=== PATIENT | female | born 1935 | race Caucasian/White ===

== ENCOUNTER 2016-12-31 06:39 | Inpatient (IN) | payer MEDICARE, BC ==
--- NOTE | ~2016-12-31 | CR72 ---
[facility] A Service of [facility] RADIOLOGY TEXT RESULTS PATIENT: JOHN DOMINGO LOCATION: [facility] [address] : [birth year] UNIT #: [id number] AGE: [address]: Noe Cyr MD SEX: F ORDER DR: [id number] [facility] [address] [place], [place] [address] [id number] MR#: [id number] Acc #: [id number] NAME: JOHN DOMINGO : 1935 SEX: F STUDY DATE/TIME: 12/31/2016 5:26 UNIT: [facility] ROOM: STUDY DESCRIPTION: CR Chest Single View Portable Attending Physician: Angela Martínez M.D. Ordering Physician: Kendall Younger M.D. Primary Care Physician: Jensen Guevara, [facility] MEDICAL IMAGING REPORT This report is preliminary unless electronic signature is present EXAM Portable chest INDICATION Shortness of air and chest pain for the past 1-2 days. PROCEDURE Frontal view chest COMPARISON 11/02/2015 FINDINGS Heart size is probably stable. There is new opacity in the left apex. No dense consolidation in the right lung. No pneumothorax. IMPRESSION New opacity in the left apex could represent infiltrate or apical pleural fluid. Dictated by... Jameson Jang M.D. THIS IS AN ELECTRONICALLY VERIFIED REPORT Jameson Jang M.D. at 12/31/2016 9:56 PM CESAR/kita TD: 12/31/2016 08:57 JOB #: [id number] MEDICAL IMAGING REPORT Page 1 of 1 COPY
--- NOTE | ~2016-12-31 | CR72 ---
[facility] A Service of [facility] RADIOLOGY TEXT RESULTS PATIENT: JOHN DOMINGO LOCATION: [facility] 302-01 : 36 UNIT #: [id number] AGE: [address]: Noe Cyr MD SEX: F ORDER DR: [id number] [facility] [address] [place], [place] [address] [id number] I MR#: [id number] Acc #: [id number] NAME: JOHN DOMINGO : 1935 SEX: F STUDY DATE/TIME: 01/02/2017 18:28 UNIT: [address] ROOM: [facility] STUDY DESCRIPTION: CR Chest Single View Portable Attending Physician: Noe Cyr M.D. Ordering Physician: Vincent Baron M.D. Primary Care Physician: Jensen Guevara, [facility] MEDICAL IMAGING REPORT This report is preliminary unless electronic signature is present EXAM Portable chest HISTORY Chest surgery, shortness of breath since 12/31/2016 FINDINGS an AP view is obtained. Cardiac size is difficult to assess but unchanged. The right lung is clear. There are extensive postsurgical changes in the left hemithorax with marked apical pleural thickening and diffuse infiltrate in the left lung. This is unchanged from previous studies. CONCLUSION Stable chest. No change from study of 12/31/2016. Dictated by... Les Box M.D. THIS IS AN ELECTRONICALLY VERIFIED REPORT Les Box M.D. at 01/03/2017 12:00 PM Shawna TD: 01/02/2017 22:38 JOB #: [id number] MEDICAL IMAGING REPORT Page 1 of 1 COPY
--- NOTE | ~2016-12-31 | OR ---
Unit #: [id number] #: [id number] Patient: JOHN DOMINGO [id number] [address] [place], [place] [address] [id number] I MR#: [id number] NAME: JOHN DOMINGO ROOM: 302 Date of Procedure: 01/04/2017 Admission Date: 12/31/2016 Surgeon: Noe Cyr M.D. : 1935 Attending Physician: Noe Cyr M.D. Primary Care Physician: Jensen Guevara, [facility] OPERATIVE REPORT PROCEDURE PERFORMED Fiberoptic bronchoscopy. 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 PREOPERATIVE DIAGNOSIS Lung cancer. POSTOPERATIVE DIAGNOSIS Submucosal tumor, left upper lobe and to the left lower lobe and up the distal left mainstem, about 1 to 2 cm from the left lower lobe. DESCRIPTION OF PROCEDURE Procedure was done under MAC on supplemental oxygen. O2 saturations remained greater than 88%. Fiberoptic bronchoscope was introduced through the oral cavity through the bite block. Vocal cords were visualized, moved normally to phonation and breathing. There were some petechial-type lesions around the vocal cords. The bronchoscope was passed through the vocal cords into the trachea. Trachea appeared normal. Main luis miguel was sharp. The bronchoscope was advanced down the right mainstem, the bronchus intermedius, right middle lobe, lower lobe, and upper lobe. All orifices were widely patent without endobronchial lesions. The bronchoscope was withdrawn to the main luis miguel, advanced down the left mainstem. There was a tumor advancing upwards in the distal left mainstem from the left lower lobe and left upper lobe. The left upper lobe was more severely involved. Brushes and washes were done of the area with moderate bleeding. The bronchoscope was removed with cessation of bleeding. The patient tolerated the procedure well and will be recovered in postop recovery room. Samples were sent for cytologic evaluation to determine cell type for determination of chemo. Dictated by... Mane Little/eduarda TD: 01/04/2017 21:53 JOB #: [id number] Unit #: [id number] #: [id number] Patient: TYLER DOMINGOQUIN BURGESS OPERATIVE REPORT Page 1 of 1 X Noe Cyr MD PROCEDURE OPERATIVE NOTE
--- NOTE | ~2016-12-31 | EKG ---
PATIENT: JOHN DOMINGO UNIT #: [id number] Ventricular Rate: 135 BPM Atrial Rate: 141 BPM QRS Duration: 78 ms Q-T Interval: 352 ms QTC Calculation(Bezet): 528 ms Calculated R [place]: 81 degrees Calculated T [place]: -123 degrees Diagnosis Line: Atrial fibrillation with rapid ventricular Diagnosis Line: response with premature ventricular or aberrantly Diagnosis Line: conducted complexes Diagnosis Line: Low voltage QRS Diagnosis Line: Nonspecific ST abnormality , probably digitalis Diagnosis Line: effect Diagnosis Line: Abnormal QRS-T angle, consider primary T wave Diagnosis Line: abnormality Diagnosis Line: Abnormal ECG Diagnosis Line: When compared with ECG of 31-DEC-2016 05:47, Diagnosis Line: Significant changes have occurred Diagnosis Line: Confirmed by JYOTI FRANKLIN MD ([id number]) on 01/02/2017 Diagnosis Line: 10:57:28 PM INTERPRETING MD: RIGOBERTO GARRISON
--- NOTE | ~2016-12-31 | CT16 ---
[facility] A Service of [facility] RADIOLOGY TEXT RESULTS PATIENT: JOHN DOMINGO LOCATION: [facility] [id number] : 36 UNIT #: [id number] AGE: [address]: Noe Cyr MD SEX: F ORDER DR: [id number] [facility] [address] [place], [place] [address] [id number] E MR#: [id number] Acc #: [id number] NAME: JOHN DOMINGO : 1935 SEX: F STUDY DATE/TIME: 12/31/2016 7:10 UNIT: [facility] ROOM: STUDY DESCRIPTION: CT Angio Chest for PE Attending Physician: Angela Martínez M.D. Ordering Physician: Kendall Younger M.D. Primary Care Physician: Jensen Guevara, [facility] MEDICAL IMAGING REPORT This report is preliminary unless electronic signature is present EXAM CT angiogram of the chest INDICATION Chest pain starting at 11 o'clock last night. Patient also has shortness of breath. She has history of lung cancer. TECHNIQUE Axial CT images were obtained from the thoracic inlet through the dome of the diaphragm following the administration of intravenous contrast material. Following this 3-D reformatted images were obtained. This CT exam was performed with one or more of the following radiation dose reduction techniques: automatic exposure control, adjustment of mA and/or kV according to patient size, and iterative reconstruction. FINDINGS No acute pulmonary thromboembolus is seen. Thoracic aorta is normal in caliber. There is no evidence of dissection. Patient does have atherosclerotic involvement of the thoracic aorta. There is a common origin of the brachiocephalic artery and left common carotid artery which is a normal anatomic variant. This patient has consolidation within the left lung favored to be related to prior radiation therapy. However, there are patchy irregularly marginated nodules within the right upper lobe and left lower lobe which are favored to represent additional malignant involvement. Their appearance is stable when compared to November 22, 2016, however there has been some progressive enlargement of an AP window node which now measures up to 2.0 x 1.2 cm, previously 1.4 x 1.1 cm. There is a pericardial effusion which I think is also increased slightly in size. There is an left epicardial node which I do not appear significantly changed measuring about 2.0 x 1.4 cm, previously 1.9 x 1.7 cm. The thyroid gland and trachea appear within normal limits. There is a small hiatal hernia. Images through the upper abdomen do not STS. [facility] A Service of [facility] RADIOLOGY TEXT RESULTS PATIENT: JOHN DOMINGO LOCATION: [facility] [id number] : 36 UNIT #: [id number] AGE: [address]: Noe Cyr MD SEX: F ORDER DR: demonstrate any acute abnormalities. Review of bony windows does not demonstrate any aggressive osseous abnormalities. IMPRESSION 1. No acute pulmonary thromboembolus seen. Thoracic aorta is normal in caliber and there is evidence of dissection. 2. Patient does have evidence of some progression of disease since November 22, 2016 as an AP window node has increased in size. When compared to the PET from August 2016, consolidation within the left upper lobe has increased. On that study it was markedly hypermetabolic. This still could reflect some postradiation change. I think the possibility that residual disease persists should certainly be considered. Irregularly marginated nodules within the left lower lobe and right upper lobe are stable in appearance when compared to November 22, 2016. These areas were also FDG avid on prior PET. I do not see any new nodules. 3. Enlarged left pericardial node is again seen. I think it is probably stable in size although a small pericardial effusion has increased. There is also a trace partially loculated left pleural effusion which may also be slightly larger. Please see the body of the report for any other additional incidental findings. Dictated by... Lisa Buchanan M.D. THIS IS AN ELECTRONICALLY VERIFIED REPORT Lisa Buchanan M.D. at 12/31/2016 4:33 PM GITA/kita TD: 12/31/2016 09:54 JOB #: [id number] MEDICAL IMAGING REPORT Page 1 of 1 COPY
--- NOTE | ~2016-12-31 | HP ---
Unit #: [id number] #: [id number] Patient: JOHN DOMINGO [id number] [address] [address] [id number] I MR#: [id number] NAME: JOHN DOMINGO ROOM: [address] Age: 81 Sex: F Admission Date: 12/31/2016 : 1935 Attending Physician: Noe Cyr M.D. Primary Care Physician: Alton Jain HISTORY AND PHYSICAL Ms. Domingo is an 81-year-old white female with a history of COPD, small cell lung cancer status post chemo and radiation, who presents with a three day history of nausea and vomiting. She also had some anterior chest pain which was short lasting. She apparently also felt more short of breath. She said she monitored O2 saturations and they were above 90%. When she came into the emergency room, she was noted to be wheezing. She was given neb treatments, Solu-Medrol. She was given normal saline bolus. Her cardiac enzymes are initially negative. Her EKG showed sinus bradycardia with a rate of 55, low voltage QRS. We were called to admit the patient. PAST MEDICAL HISTORY Significant for: 1. Small cell lung cancer, followed by Dr. Vasquez and Dr. Simpson. 2. COPD. 3. Hypercholesterolemia. 4. Hypothyroidism. 5. Some arthritis. 6. Depression/anxiety. ALLERGIES No known allergies. SURGICAL HISTORY Has had multiple surgeries, says she has had 17 to 21. 1. She has had a hysterectomy. 2. Breast reduction. 3. Tummy tuck. 4. Bladder repair. 5. Tumor removed from neck. 6. Right foot surgery. 7. Left ankle surgery. FAMILY HISTORY Negative for lung disease. SOCIAL HISTORY Reformed smoker x15 years. Accumulated a 40 pack-year history. No significant alcohol use. MEDICATIONS Home medications listed include: 1. Xanax. 2. Synthroid. Unit #: [id number] #: [id number] Patient: JOHN DOMINGO 3. Ocuvite. 4. Says she also takes Symbicort. 5. She no longer wears home oxygen. REVIEW OF SYSTEMS CONSTITUTIONAL: Had some chills. No documented fevers. HEENT: No rhinorrhea or nasal congestion. Was short of breath. CARDIAC: She did have chest pains. GI: She did have nausea, vomiting. Hard to keep any food down for three days. : No hematuria or dysuria. ENDOCRINE: No polyuria or polydipsia. HEMATOLOGIC: No easy bruising or bleeding. SKIN: No rash. NEURO: No unilateral weakness or numbness. PHYSICAL EXAMINATION VITAL SIGNS: Blood pressure is 99/46, pulse 56, respiratory rate 20, afebrile. HEENT: Normocephalic, atraumatic. Pupils equal, round, reactive. Sclerae nonicteric. Nasal passages patent. Posterior pharynx crowded. NECK: Supple. Trachea midline. No cervical or supraclavicular lymphadenopathy. LUNGS: Diminished breath sounds. Slightly prolonged expiratory phase. CARDIAC: Heart sounds distant. Regular rate and rhythm. Could not appreciate murmur, rub or gallop. ABDOMEN: Nontender. Bowel sounds present. No hepatosplenomegaly. EXTREMITIES: Without clubbing, cyanosis or edema. Diminished peripheral pulses. SKIN: Warm and dry. Affect calm. DIAGNOSTIC STUDIES IMAGING: Chest x-ray reviewed. Chest x-ray shows new opacity in the left apex. Chest CT scan shows no evidence of pulmonary embolus. There is evidence of disease progression since October 2016. Consolidation in the left upper lobe has increased. LABORATORY: Chemistries reviewed. Cardiac enzymes negative. White count 9200, hematocrit 38.1, platelet count normal. IMPRESSION 1. Nausea, vomiting, uncertain etiology: Possible gastroenteritis. 2. Apparent mild respiratory failure, apparently O2 sats dropped during the emergency room. 3. Chronic obstructive pulmonary disease exacerbation, currently improved. 4. Small cell lung cancer with apparent progression of disease. Will treat with inhaled bronchodilators, burst steroids, cover with antibiotics. Will have Dr. Vasquez see regarding progression of disease. Will rule out AK. Start on clear liquid diet, Protonix. Monitor progress. May have GI see depending on followup. Dictated by Unit #: [id number] #: [id number] Patient: JOHN DOMINGO Mane Little/ariana TD: 12/31/2016 12:53 JOB #: [id number] CC: Jerome Pate M.D. HISTORY AND PHYSICAL Page 1 of 1 X Noe Cyr MD HISTORY AND PHYSICAL
--- NOTE | ~2016-12-31 | CO ---
Unit #: [id number] #: [id number] Patient: JOHN DOMINGO [id number] [address] [place], [place] [address] [id number] I MR#: [id number] NAME: JOHN DOMINGO ROOM: [facility] Age: 81 Sex: F Admission Date: 12/31/2016 : 1935 Attending Physician: Noe Cyr M.D. Primary Care Physician: Jensen Guevara, [facility] CONSULTATION REPORT REASON FOR CONSULTATION Atrial fibrillation with rapid ventricular response. HISTORY OF PRESENT ILLNESS This is an 81-year-old white female, who presented to the emergency room with a complaint of shortness of breath and vomiting. She says on Saturday morning she began to have vomiting every time she ate anything that went on all day long. Later that evening, she felt short of breath. She thought her breathing was okay because her oxygen saturation was 93%, which she took at home. She initially felt that her dyspnea was because of anxiety. She had a cough that was not very frequent and nonproductive. On Saturday, she states her dyspnea worsened. She had some discomfort in her chest that she felt was like pleurisy. She came to the emergency room for evaluation, where she was noted to be wheezing. She was treated with Mini-Neb treatments and IV steroids. She has a history of COPD and has not been on oxygen since March. She has faj-kkeru-bnzz lung cancer and has undergone multiple radiation and chemotherapy treatments. Her last chemotherapy treatment was a month and a half ago. She has a remote history of nicotine abuse, but she quit 20 years ago. She also said that she has chest heaviness after she walks on the treadmill for only 45 minutes. She has had no prior cardiac history or testing. She denies a history of hypertension, but has had high cholesterol in the past, but has been taken off medication. She has a history of rheumatic fever as a child. The patient was scheduled for a bronchoscopy because there was evidence of progression of her rza-epiyu-aoff lung cancer. Prior to the procedure, the patient was found to be in atrial fibrillation with rapid ventricular response with heart rate was up to 130 to 140 beats per minute. EKG confirmed atrial fibrillation. She was unaware of palpitations. PAST MEDICAL HISTORY 1. Hypotension. 2. Hyperlipidemia. 3. Rheumatic fever as a child. 4. Ibi-cgqff-nefz lung cancer, status post chemo and radiation therapy. 5. COPD. 6. Former smoker. 7. Questionable solitary kidney. PAST SURGICAL HISTORY 1. Tummy tuck. 2. Hernia repair. Unit #: [id number] #: [id number] Patient: JOHN DOMINGO 3. Cataract extraction. 4. Septoplasty. 5. Right neck benign tumor removal. 6. Bilateral breast reduction. 7. Right shoulder surgery. 8. Hysterectomy. 9. Bladder repair x2. 10. Bilateral knee replacements. 11. Toe spur removal. 12. Left leg surgery for repair of fracture. SOCIAL HISTORY The patient lives at home alone. She quit smoking 20 years ago, but previously smoked two packs of cigarettes a day. She denies illicit drug and alcohol use. FAMILY HISTORY Sister at age 64 and had a rheumatic fever as a child. ALLERGIES No known drug allergies. HOME MEDICATIONS Xanax 0.25 mg q.6 hours, levothyroxine 25 mcg daily, and Ocuvite one tablet daily. REVIEW OF SYSTEMS CONSTITUTIONAL: Negative for fever or chills. Reports no weight gain or weight loss. HEENT: No headache, hearing or vision changes, or difficulty with swallowing. No dizziness. CARDIOVASCULAR: Has chest heaviness as described in the HPI. Unaware of palpitations. No paroxysmal nocturnal dyspnea or orthopnea. Denies syncope or near syncope. RESPIRATORY: Positive for dyspnea and nonproductive cough. No hemoptysis. GASTROINTESTINAL: No abdominal pain, but reports nausea and vomiting. No constipation. No diarrhea. EXTREMITIES: Negative for lower extremity edema. PHYSICAL EXAMINATION VITAL SIGNS: Blood pressure 105/52, heart rate 87, and temperature 97.7. GENERAL: This is a pleasant 81-year-old mildly obese white female, who is in no acute distress. NEUROLOGIC: She is awake, alert, and oriented. There are no focal weaknesses. NECK: Trachea is midline. No thyromegaly or lymphadenopathy. No jugular venous distention. HEART: S1 and S2. Heart sounds are normal. No murmurs. No rubs or clicks. Irregularly irregular rhythm. LUNGS: Diminished breath sounds in both lungs. No rhonchi or wheezing. ABDOMEN: Soft and nontender. Bowel sounds are present. No hepatomegaly. EXTREMITIES: Without leg edema. SKIN: Warm and dry. DIAGNOSTIC STUDIES LABORATORY RESULTS: From 12/31/2016; glucose 93, BUN 19, creatinine 1.0, sodium 136, and potassium 3.8. BNP 41. Troponin less than 0.05. White Unit #: [id number] #: [id number] Patient: JOHN DOMINGO count 92, hemoglobin 12.6, hematocrit 38.8, and platelet count is 418. IMAGING STUDIES: CT angio of the chest on admission shows no evidence of pulmonary embolism. There is evidence of some progression of the disease since 10/2016. A large left pericardial node is seen. CARDIOVASCULAR STUDIES: EKG shows atrial fibrillation with rapid ventricular response with a rate of 135 beats per minute. There is nonspecific ST-wave abnormality. Low-voltage QRS. IMPRESSION 1. Dyspnea questionably secondary to progression of her lung cancer. 2. Chronic obstructive pulmonary disease exacerbation. 3. Atrial fibrillation with rapid ventricular response. 4. Exertional angina. PLAN 1. Because of atrial fibrillation with rapid ventricular response, we will anticoagulate the patient with Lovenox. 2. Slow the heart rate with IV Cardizem drip. 3. Because of exertional angina, we will evaluate coronaries with a cardiac catheterization. Risks and benefits have been discussed with the patient and she is agreeable. 4. Lipid profile and TSH will be obtained. 5. We will follow the patient with you. Thank you for allowing us to assist in this patient's care. Dictated by... Scotty Pavon A.P.R.N. for Mane Mckeon/eduarda TD: 01/02/2017 20:45 JOB #: [id number] CONSULTATION REPORT Page 1 of 1 X Scotty Pavon APRN X CONSULTATION REPORT
--- NOTE | ~2016-12-31 | DS ---
Unit #: [id number] #: [id number] Patient: JOHN DOMINGO [id number] [address] [place], [place] [address] [id number] I MR#: [id number] NAME: JOHN DOMINGO ROOM: [facility] Age: 81 Sex: F Admission Date: 12/31/2016 : 1935 Discharge Date: 01/04/2017 Attending Physician: Noe Cyr M.D. Primary Care Physician: Jensen Guevara, [facility] DISCHARGE SUMMARY DISCHARGE DIAGNOSES 1. Progressive lung cancer. 2. Nausea and vomiting, resolved. 3. Chronic obstructive pulmonary disease exacerbation. 4. Acute respiratory failure, resolved. 5. Atrial fibrillation with rapid ventricular response. DISCHARGE MEDICATIONS 1. Albuterol 2 puffs every 4 hours as needed. 2. Symbicort 160/4.5 at 2 puffs b.i.d. 3. Prednisone 40 mg for 2 days and decrease by 10 mg every 2 days until off. 4. Xanax 0.25 p.o. q.6 hours p.r.n. 5. Metoprolol 12.5 mg p.o. b.i.d. 6. Beta-carotene. 7. Ocuvite tablet 1 daily. 8. Synthroid 25 mcg daily. 9. Pradaxa per Dr. Baron. HOSPITAL COURSE An 81-year-old white female with a history of COPD and small cell lung cancer, status post chemoradiation, left upper lobe, presented with a three-day history of nausea, vomiting, and some anterior chest pain. She also noted to be more short of breath. She presented to the emergency room. Cardiac enzymes were negative. EKG showed sinus bradycardia, rate of 55, and low voltage QRS. We were called to admit the patient. Chest x-ray showed new opacity in the left apex. Chest CT showed no evidence of pulmonary embolus. There was evidence of disease progression since October 2016. Consolidation in the left upper lobe had increased. White blood cell count was 9200, hematocrit was 38.1, and platelet count was normal. She was admitted and started on IV fluids, a clear liquid diet, and provided Zofran. Her nausea and vomiting resolved. She was seen by Dr. Vasquez who noted disease progression. He also noted that initial biopsy showed a combination of small cell and nonsmall cell and recommended repeat bronchoscopy to reassess tissue type. The patient was treated for COPD exacerbation with inhaled bronchodilators and IV Solu-Medrol. She had clearing of her wheezes. Her steroids were weaned. She was scheduled for bronchoscopy on January 02, 2017. She was noted to be in atrial fibrillation with rapid ventricular response and bronchoscopy was cancelled. She was seen in consult by Cardiology, Dr. Baron. She was started on metoprolol, and she converted back to sinus rhythm. She underwent cardiac cath to rule out ischemic heart disease and Unit #: [id number] #: [id number] Patient: JOHN DOMINGO etiology of atrial fibrillation, and she had a normal cath with no coronary artery disease and normal ejection fraction. Dr. Baron recommended anticoagulation. She was initially started on Lovenox. Pradaxa was recommended as an outpatient. Her Lovenox was held, and she underwent bronchoscopy on January 04, 2017, and found to have evidence of mucosal tumor in the distal left mainstem extending down into the left lower lobe and into the left upper lobe with narrowing of the anterior apical and posterior segments with marked narrowing of the anterior and apical posterior segments. Brushes were done with moderate bleeding which resolved with saline. Dr. Vasquez will follow up on bronchoscopy results and tissue type returned. FOLLOWUP 1. With Dr. Baron regarding her atrial fibrillation. 2. With my office for exacerbation of her COPD in about there weeks. 1. Dictated by... Noe Cyr M.D. BERNADINE/elan TD: 01/06/2017 17:24 JOB #: [id number] CC: Mane Mckeon M.D. Douglas E. Mattingly, M.D. DISCHARGE SUMMARY Page 1 of 1 X Noe Cyr MD X DISCHARGE SUMMARY
--- NOTE | ~2016-12-31 | CO ---
Unit #: [id number] #: [id number] Patient: JOHN DOMINGO [id number] [id number] [facility]. [place], [place] [address] [id number] I MR#: [id number] NAME: JOHN DOMINGO ROOM: 231 Age: 81 Sex: F Admission Date: 12/31/2016 : 1935 Attending Physician: Noe Cyr M.D. Primary Care Physician: Jensen Guevara, [place] Consultation Date: 01/01/2017 CONSULTATION REPORT REASON FOR CONSULT Lung cancer, please evaluate. 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 We are requested to evaluate. Today on questioning she states that she was not feeling too well, started getting short winded, got worried and came to the emergency room. 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 CHRONIC MEDICATIONS Chronic medications include Xanax, albuterol, Synthroid, multivitamins. ALLERGIES No known allergies. FAMILY HISTORY Family history is negative for lung cancers. SOCIAL HISTORY She quit smoking 15 or 16 years ago but does have a 40 pack smoking history, no alcohol usage, currently retired. REVIEW OF SYSTEMS Increasing shortness of breath, no chest pain, just some discomfort right side of the chest and eight systems were within normal limits. PHYSICAL EXAMINATION GENERAL APPEARANCE: On exam central obesity, no palpable nodes. LUNGS: Crackles. No rales. CARDIOVASCULAR: Distant S1 and S2. ABDOMEN: Central obesity. No organomegaly. 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 GENITOURINARY: Pelvic exam was not performed. BREASTS: Exam was not performed. Unit #: [id number] #: [id number] Patient: JOHN DOMINGO DIAGNOSTIC STUDIES LABORATORY: Chemistry: Glucose 97, BUN 19, creatinine 1, sodium 136, potassium 3.8, chloride 99, CO2 27. Hemoglobin 12.6, hematocrit is 38.8, white count 9200 and platelets 418,000. IMAGING: CT of the chest with and without contrast was reviewed and it shows a 2.7 x 1.4 cm irregularly marginated parenchymal mass in the upper lobe of the right side which previously measured 2.9 x 1.8 so it is slightly smaller. Increasing opacification of the left hemithorax with fluid tracking into the left lung apex. Increase in the size of the lymph node, now measures 1.4 x 1.[address] that was a CT scan which was done November 22. CT angio done December 31 was reviewed and it shows progression of disease from the previous CT scan. IMPRESSION AND PLAN The meaning of this was discussed with the patient in detail as we have previous small cell and non-small cell and she is status post chemo and radio therapy with evidence of progression. Then I would discuss with Dr. Cornel Cyr as we may need bronchoscopy and biopsy of those areas to see what type of tumor is the residual, is it the squamous cell carcinoma or is it the small cell, and depending on that decide on further chemotherapy. Dictated by... Mane Veliz/moshe TD: 01/01/2017 15:27 JOB #: [id number] CONSULTATION REPORT Page 1 of 1 X Khanh Vasquez MD CONSULTATION REPORT
--- NOTE | ~2016-12-31 | EKG ---
PATIENT: JOHN DOMINGO UNIT #: [id number] Ventricular Rate: 56 BPM Atrial Rate: 56 BPM P-R Interval: 190 ms QRS Duration: 84 ms Q-T Interval: 476 ms QTC Calculation(Bezet): 459 ms P [place]: 34 degrees Calculated R [place]: 47 degrees Calculated T [place]: 100 degrees Diagnosis Line: Sinus bradycardia Diagnosis Line: Low voltage QRS Diagnosis Line: Borderline ECG Diagnosis Line: When compared with ECG of 31-DEC-2016 05:47, Diagnosis Line: (unconfirmed) Diagnosis Line: No significant change was found Diagnosis Line: Confirmed by JYOTI FRANKLNI MD ([id number]) on 01/01/2017 Diagnosis Line: 11:09:28 PM INTERPRETING MD: RIGOBERTO GARRISON
[2016-12-31 05:51] LABS: POC - CKMB 1.8 ng/mL (0.0-7.9); POC - TROPONIN <0.05 ng/mL (<=0.05)
[2016-12-31 05:52] LABS: BASOPHIL% 0.5 % (0-2.5); EOSINOPHIL# 0.3 X10e3 (0-0.7); EOSINOPHIL% 2.8 % (0.0-7.0); HEMATOCRIT 38.8 % (35.0-45.0); HEMOGLOBIN 12.6 gm/dL (12.0-16.0); LYMPHOCYTE# 1.7 X10e3 (1.0-3.5); MEAN CELL VOLUME 83.2 FL (83-96); MEAN CORPUSCULAR HEMOGLOBIN 26.9 PG (28-34); MEAN CORPUSCULAR HGB CONC 32.4 g/dL (30-36); MEAN PLATELET VOLUME 7.2 FL (6.5-11.5); MONOCYTE# 0.8 X10e3 (0-1.0); MONOCYTE% 8.1 % (3.0-12.0); NEUTROPHIL# 6.5 X10e3 (1.5-7.1); NEUTROPHIL% 70.6 % (40-75); PLATELET COUNT 418 X10e3 (140-420); RED BLOOD COUNT 4.66 X10e (3.90-5.30); WHITE BLOOD COUNT 9.2 X10e3 (4.0-10.5)
[2016-12-31 06:20] LABS: DIFF IND NO
[2016-12-31 06:24] LABS: PARTIAL THROMBOPLASTIN TIME 26.4 SECONDS (23.5-31.3); PROTHROMBIN TIME (PATIENT) 10.1 SECONDS (9.6-11.5)
[2016-12-31 06:32] LABS: ALBUMIN SERUM 3.8 g/dL (3.5-5.0); BILIRUBIN, DIRECT 0.1 mg/dL (0.0-0.2); BILIRUBIN,INDIRECT 0.3 mg/dL (0.0-0.9); BILIRUBIN,TOTAL 0.4 mg/dL (0.2-2.0); CALCIUM SERUM 9.9 mg/dL (8.4-10.2); GLOM FILT RATE Estimated 53.2 mL/min (>60); POTASSIUM 3.8 mmol/L (3.5-5.1); PROTEIN TOTAL SERUM 7.2 g/dL (6.0-8.3)
[~2016-12-31 06:39] MED LIST: ALBUTEROL17 GM INH; ALEVE PO; ALEVE220 M1 PO; ALPRAZOLAM PO; AMBIEN PO; AMBIEN10 MG PO; CENTRUM SILVER PO; CLARITIN D PO; CRANBERRY 6,001 EACH PO; CRANBERRY PO; DELTASONE20 MG PO; DERMA-SMOOT118.28 ML TOP; DULERA 100 MCG/13 GM IH; DYMISTA NASAL S23 GM; FELDENE20 MG PO; FISH OIL PO; FLUOXETINE HCL40 M1 PO; LEVAQUIN PO; LEVOTHYROXINE25 MCG PO; LIVALO2 MG PO; MUCINEX DM1 TAB.SR . PO; MUCUS ER600 MG PO; NIACIN500 M1 PO; OCUVITE LUTEIN1 CA1 PO; OCUVITE TABLET1 TAB PO; OXYGEN; PHILLIP COLON HEALTH PO; PRAVACHOL PO; PREVACID PO; PROZAC PO; SYMBICORT INH; VITAMIN B-12500 MC2 PO; VITAMIN D PO; VITAMIN D31000 UNI1 PO; XANAX0.5 M1 PO; [UNRECOGNIZED DRUG - OTHER] PO
[2016-12-31 09:03] LABS: POC - CKMB 1.4 ng/mL (0.0-7.9); POC - TROPONIN <0.05 ng/mL (<=0.05)
[2016-12-31] MEDS ORDERED: ALPRAZOLAM PO (11:15)
[2016-12-31] MEDS ORDERED: SYNTHROID25 MCG PO (11:16)
[2016-12-31] MEDS ORDERED: OCUVITE TABLET1 TA1 PO (11:17)
[2016-12-31 18:21] LABS: %MB 2.4 % (0.0-4.0); MB 2.1 ng/ml
[2017-01-01 00:26] LABS: %MB 5.2 % (0.0-4.0); MB 4.6 ng/ml
[2017-01-01 07:44] LABS: MB 2.9 ng/ml
[2017-01-03 02:03] LABS: ALBUMIN SERUM 3.6 g/dL (3.5-5.0); BILIRUBIN,TOTAL 0.6 mg/dL (0.2-2.0); BUN/CREATININE RATIO 28.18; CALCIUM SERUM 8.9 mg/dL (8.4-10.2); CREATININE SERUM 1.1 mg/dL (0.6-1.4); GLOM FILT RATE Estimated 47.4 mL/min (>60); POTASSIUM 4.9 mmol/L (3.5-5.1); PROTEIN TOTAL SERUM 6.6 g/dL (6.0-8.3)
[2017-01-03 02:12] LABS: THYROID STIMULATING HORMONE 0.88 uIU/ml (0.34-5.60)
[2017-01-04] MEDS ORDERED: ALBUTEROL20 ml INH (16:04)
[2017-01-04] MEDS ORDERED: SYMBICORT 80-10.2 GM INH (16:05)
[2017-01-04] MEDS ORDERED: PREDNISONE10 M1 PO (16:08)
[2017-01-04] MEDS ORDERED: LOPRESSOR PO (16:10)
[2017-01-04] MEDS ORDERED: COUMADIN5 MG PO (17:46)
[2017-01-18] MEDS ORDERED: OXYCONTIN10 MG PO (07:27)
[2017-01-18] MEDS ORDERED: MUCINEX1200 MG PO (07:28)
== END 2017-01-04 18:31 | disposition home or self-care (01) | DRG 180 ==
LOC: CED 06:39 → CEDOF 09:30 → C2A 19:44 → C3A PCU 01-02 15:36
PROVIDERS: Emergency Medicine; Internal Medicine; Internal Medicine Cardiovascular Disease
PROC: B32TYZZ Computerized Tomography (CT Scan) of Left Pulmonary Artery using Other Contrast (ICD-10-PCS; principal; 2016-12-31)
PROC: B32SYZZ Computerized Tomography (CT Scan) of Right Pulmonary Artery using Other Contrast (ICD-10-PCS; 2016-12-31)
PROC: 4A023N7 Measurement of Cardiac Sampling and Pressure, Left Heart, Percutaneous Approach (ICD-10-PCS; 2017-01-03)
PROC: B211YZZ Fluoroscopy of Multiple Coronary Arteries using Other Contrast (ICD-10-PCS; 2017-01-03)
PROC: B215YZZ Fluoroscopy of Left Heart using Other Contrast (ICD-10-PCS; 2017-01-03)
PROC: 0BB88ZX Excision of Left Upper Lobe Bronchus, Via Natural or Artificial Opening Endoscopic, Diagnostic (ICD-10-PCS; 2017-01-04)
DX: C34.12 Malignant neoplasm of upper lobe, left bronchus or lung (principal); J96.00 Acute respiratory failure, unspecified whether with hypoxia or hypercapnia; C34.32 Malignant neoplasm of lower lobe, left bronchus or lung; I48.91 Unspecified atrial fibrillation; F41.9 Anxiety disorder, unspecified; F32.9 Major depressive disorder, single episode, unspecified; Z87.891 Personal history of nicotine dependence; E78.00 Pure hypercholesterolemia, unspecified; Z98.49 Cataract extraction status, unspecified eye; Z90.710 Acquired absence of both cervix and uterus; Z96.653 Presence of artificial knee joint, bilateral; R07.9 Chest pain, unspecified; E03.9 Hypothyroidism, unspecified; R11.2 Nausea with vomiting, unspecified
CPT/HCPCS: 36415; 71010; 71275; 80048; 80053; 80061; 80076; 82308; 82550; 82553; 82947; 83880; 84439; 84443; 84484; 85025; 85610; 85730; 88104; 88108; 88305; 93005; 93306; 94640; 94760; 96374; 99285; C1769; C1887; C1894; C9113; J0171; J1644; J1650; J2250; J2920; J2930; J3010; J3475; J3480; Q9967

== ENCOUNTER → 2017-01-18 | Outpatient (CLI) | payer MEDICARE, BC ==
[~2017-01-18] MED LIST changes: +ALBUTEROL20 ml INH; +COUMADIN5 MG PO; +LOPRESSOR PO; +MUCINEX1200 MG PO; +OCUVITE TABLET1 TA1 PO; +OXYCONTIN10 MG PO; +PREDNISONE10 M1 PO; +PROTONIX PO; +SYMBICORT 80-10.2 GM INH; +SYNTHROID25 MCG PO
--- NOTE | ~2017-01-18 | XA91 ---
[facility] A Service of [facility] RADIOLOGY TEXT RESULTS PATIENT: JOHN DOMINGO LOCATION: CIVR : 36 UNIT #: [id number] AGE: [address]: Khanh Vasquez MD SEX: F ORDER DR: [id number] [facility] [address] [facility]. [place], [place] [address] [id number] O MR#: [id number] Acc #: [id number] NAME: JOHN DOMINGO : 1935 SEX: F STUDY DATE/TIME: 01/18/2017 8:28 UNIT: CIVR ROOM: STUDY DESCRIPTION: XA CVC Tunneled W Port Attending Physician: Khanh Vasquez M.D. Ordering Physician: Khanh Vasquez M.D. Primary Care Physician: Alton Jain MEDICAL IMAGING REPORT This report is preliminary unless electronic signature is present EXAM Ultrasound and fluoroscopically guided placement of a right internal jugular venous chest port. INDICATIONS 81-year-old female with history of lung cancer who needs access for chemotherapy. MEDICATIONS Medications were 1 gram of Cefazolin administered for antibiotic prophylaxis. 4 mg of Versed IV and 150 mcg of fentanyl IV were administered for conscious sedation. Conscious sedation time of 55 minutes was monitored by appropriately credentialed Radiology nursing staff. The fluoroscopy time was 0.4 minutes, and the reference air kerma is 3 mGy. TECHNIQUE Risks, benefits, and alternatives of the procedure were discussed with the patient, and informed consent was obtained. In the procedure room, a time-out was performed confirming correct patient and procedure. All elements of maximum sterile-barrier technique utilized according to guidelines appropriate for the procedure. Ultrasound of the right internal jugular vein was performed. It is patent and compressible, and images saved. Next, using full standard sterile barrier technique including sterile caps, gowns, gloves, masks, drapes, 2% Chlorhexidine for cutaneous antisepsis, and hand hygiene, real-time sterile ultrasound guidance was utilized with sterile gel and a sterile probe cover, and the right internal jugular vein was punctured using 21-gauge micropuncture needle. Through this access and under fluoroscopic guidance, a peel-away sheath was advanced into the SVC. Next a small incision was made below the right clavicle. A subcutaneous STS. [facility] A Service of [facility] RADIOLOGY TEXT RESULTS PATIENT: JOHN DOMINGO LOCATION: CIVR : 36 UNIT #: [id number] AGE: [address]: Khanh Vasquez MD SEX: F ORDER DR: pocket was created. The port was placed in the pocket and tunneled underneath the skin through the jugular dermatotomy site. Tubing is measured and cut to length, and was advanced through the sheath. The sheath was peeled away. Spot images taken, confirming satisfactory position with the tip of the catheter located in the lower SVC. The port was flushed with heparinized saline. The port pocket was closed using 3-0 Vicryl and Dermabond. The jugular dermatotomy site was closed using Dermabond. The patient tolerated the procedure well without immediate complications. IMPRESSION Technically successful ultrasound and fluoroscopically guided placement of a right internal jugular venous chest port. Dictated by... Juaquin Coughlin M.D. THIS IS AN ELECTRONICALLY VERIFIED REPORT Juaquin Coughlin M.D. at 01/19/2017 9:36 AM Edilberto TD: 01/18/2017 17:11 JOB #: [id number] MEDICAL IMAGING REPORT Page 1 of 1 COPY
[2017-01-18 07:20] LABS: HEMATOCRIT 40.9 % (35.0-45.0); HEMOGLOBIN 13.2 gm/dL (12.0-16.0); MEAN CELL VOLUME 84.2 FL (83-96); MEAN CORPUSCULAR HEMOGLOBIN 27.2 PG (28-34); MEAN CORPUSCULAR HGB CONC 32.3 g/dL (30-36); MEAN PLATELET VOLUME 6.9 FL (6.5-11.5); RED BLOOD COUNT 4.85 X10e (3.90-5.30); RED CELL DISTRIBUTION WIDTH 17.3 % (11.0-15.5); WHITE BLOOD COUNT 8.6 X10e3 (4.0-10.5)
[2017-01-18 07:32] LABS: INR 0.9; PARTIAL THROMBOPLASTIN TIME 24.2 SECONDS (23.5-31.3); PROTHROMBIN TIME (PATIENT) 9.6 SECONDS (9.6-11.5)
== END | disposition home or self-care (01) ==
LOC: CIVR 06:27
PROVIDERS: Internal Medicine Medical Oncology
PROC: 05HM33Z Insertion of Infusion Device into Right Internal Jugular Vein, Percutaneous Approach (ICD-10-PCS; principal; 2017-01-18)
DX: Z45.2 Encounter for adjustment and management of vascular access device (principal); C34.12 Malignant neoplasm of upper lobe, left bronchus or lung; D75.9 Disease of blood and blood-forming organs, unspecified; D47.3 Essential (hemorrhagic) thrombocythemia; D49.1 Neoplasm of unspecified behavior of respiratory system; C34.90 Malignant neoplasm of unspecified part of unspecified bronchus or lung; Z98.890 Other specified postprocedural states
CPT/HCPCS: 36415; 76937; 77001; 85027; 85610; 85730; C1788; C1894; J0690; J1642; J2250; J3010

== ENCOUNTER 2017-02-10 22:14 | Inpatient (IN) | payer MEDICARE, BC ==
--- NOTE | ~2017-02-10 | HP ---
Unit #: [id number] #: [id number] Patient: JOHN DOMINGO [id number] [address] [place], [place] [address] [id number] I MR#: [id number] NAME: JOHN DOMINGO ROOM: 218 Age: 81 Sex: F Admission Date: 02/11/2017 : 1935 Attending Physician: Robby Cyr M.D. HISTORY AND PHYSICAL REASON FOR ADMISSION Possible pneumonia. HISTORY OF PRESENT ILLNESS Patient is an 81-year-old female who has progressive mixed cell lung cancer. It has cellular morphology consistent with squamous cell but also possible small cell as well. She is undergoing chemotherapy. She had a one to two day history of weakness. She presented to the emergency room where her blood pressure was somewhat low. There was a question of "sepsis," and she was admitted to the hospital. She feels much better now. She denied chest pain or palpitations. She denied any abdominal pain, nausea, or vomiting to my interview. However, the ER face sheet says she had nausea and vomiting. She had no fever, sputum production out of the ordinary, or wheezing. PAST MEDICAL HISTORY 1. Chronic obstructive pulmonary disease, apparently had had oxygen at home but does not require oxygen now, and that has been fairly extensively evaluated per her history. 2. Progressive lung cancer, mixed cellular type, status post bronchoscopy by Dr. Cyr last month. 3. Atrial fibrillation with rapid ventricular response, recent cardiac catheterization and other workup was negative. She was placed on metoprolol at that time. 4. Hypothyroidism. 5. There is some mention of hyperlipidemia. 6. 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 HOME MEDICATIONS She basically had quit taking all of her medications just because "I was taking too many." She did however, continue her Xanax, Ambien, and hydrocodone. Other medicines included Synthroid, Ocuvite vitamin, Symbicort, and albuterol. Coumadin she had stopped. Mucinex. ALLERGIES Morphine unknown reaction. SOCIAL HISTORY She quit smoking but had amassed significant tobacco years in the past. REVIEW OF SYSTEMS No fever or chills. No change in her sputum. She usually has chronic white sputum production, but that is not changed. No hemoptysis, no chest pain or palpitations, no abdominal pain, melena, or hematochezia, no Unit #: [id number] #: [id number] Patient: JOHN DOMINGO hematuria or dysuria, and no focal weakness or paresthesias. Further review of systems negative. PHYSICAL EXAMINATION GENERAL: A pleasant lady in no acute distress. VITAL SIGNS: She is afebrile, pulse 79, respiratory rate is 116, and blood pressure is 118/101. She is 5 feet tall and 158 pounds. BMI is 37. HEENT: Pupils are equal, round, and reactive to light. Sclerae are anicteric. Head atraumatic. Mucous membranes are moist. She does have some natural teeth. NECK: Supple. No supraclavicular or cervical adenopathy appreciated. CHEST: No wheeze, stridor, or consolidation. Somewhat decreased breath sounds on the left. CARDIAC: Regular rate and rhythm. No pathologic murmur, rub, or gallop. ABDOMEN: Soft and nontender. No hepatomegaly or rebound. EXTREMITIES: No clubbing, cyanosis, or edema. No calf tenderness. SKIN: Warm and dry without rash or diaphoresis. DIAGNOSTIC STUDIES LABORATORY: BUN is 28, creatinine 1.3, and sodium is 132. Lactic acid 1. TSH last month was normal; however, she stopped taking her Synthroid. INR normal. Cardiac enzymes normal. CBC essentially normal. Blood cultures have been performed and are no growth so far. IMAGING: Chest x-ray shows left upper lobe opacification and volume loss essentially the same to my review. The radiologist says it may have progressed somewhat. CARDIOLOGY: EKG shows atrial flutter with controlled rate at 91. IMPRESSION 1. Generalized weakness, status post chemotherapy, multifactorial. 2. Mild hypotension possibly secondary to decreased intake. There was some mention in the emergency room face sheet that she had nausea and vomiting, although she denied that to my history. 3. Progressive mixed cell lung cancer. 4. Chronic obstructive pulmonary disease. 5. Atrial fibrillation, controlled rate despite noncompliance with metoprolol. 6. Hypothyroidism. 7. Medical noncompliance. PLAN Admission to the hospital. IV fluids. I will recheck her TSH. I would consider evaluation for adrenal insufficiency, but she got a dose of steroids in the ER. I will discontinue her vancomycin and tobramycin. Check a procalcitonin level. Follow up cultures and if all negative, probably stop antibiotics all together. I will recheck her blood pressure including orthostatics in the morning and anticipate discharge home tomorrow. Dictated by Anthony Stanley M.D. WOL/am TD: 02/11/2017 16:26 JOB #: [id number] Unit #: [id number] #: [id number] Patient: JOHN DOMINGO CC: Alton Jain M.D. HISTORY AND PHYSICAL Page 1 of 1 X Anthony Stanley MD HISTORY AND PHYSICAL
--- NOTE | ~2017-02-10 | CR72 ---
[facility] A Service of [facility] RADIOLOGY TEXT RESULTS PATIENT: JOHN DOMINGO LOCATION: [facility] 218-01 : 36 UNIT #: [id number] AGE: [address]: HERRERA CYR MD SEX: F ORDER DR: [id number] [facility] [address] [place], [place] [address] [id number] I MR#: [id number] Acc #: [id number] NAME: JOHN DOMINGO : 1935 SEX: F STUDY DATE/TIME: 02/11/2017 6:10 UNIT: CEDOF ROOM: [id number] STUDY DESCRIPTION: CR Chest Single View Portable Attending Physician: Herrera Cyr M.D. Ordering Physician: Ed Minh Torre M.D. Primary Care Physician: No Primary Care Physician MEDICAL IMAGING REPORT This report is preliminary unless electronic signature is present EXAM Portable view of the chest. INDICATION Shortness of air and weakness for two days. History of lung cancer. COMPARISON 02/10/2017. FINDINGS Portable view of the chest was obtained. Heart size is normal. The right lung is clear. A Port-A-Cath is present. There is dense consolidation or mass in the left upper lobe which is unchanged. IMPRESSION No change in abnormal density throughout most of the left upper lobe. Right lung is clear. Dictated by... Rubio Choudhary M.D. THIS IS AN ELECTRONICALLY VERIFIED REPORT Rubio Choudhary M.D. at 02/11/2017 2:19 PM FEL/gz TD: 02/11/2017 10:27 JOB #: [id number] MEDICAL IMAGING REPORT Page 1 of 1 COPY
--- NOTE | ~2017-02-10 | EKG ---
PATIENT: JOHN DOMINGO UNIT #: [id number] Ventricular Rate: 91 BPM Atrial Rate: 375 BPM QRS Duration: 84 ms Q-T Interval: 368 ms QTC Calculation(Bezet): 452 ms Calculated R [place]: 21 degrees Calculated T [place]: 78 degrees Diagnosis Line: Atrial fibrillation Diagnosis Line: Abnormal ECG Diagnosis Line: No previous ECGs available Diagnosis Line: Confirmed by DARCY AU MD ([id number]) on Diagnosis Line: 02/12/2017 1:28:35 PM INTERPRETING MD: ROE GARRISON
--- NOTE | ~2017-02-10 | CR72 ---
[facility] A Service of [facility] & [facility] RADIOLOGY TEXT RESULTS PATIENT: JOHN DOMINGO LOCATION: [facility] 218-01 : 36 UNIT #: [id number] AGE: [address]: HERRERA CYR MD SEX: F ORDER DR: [id number] [facility] [address] [place], [place] [address] [id number] I MR#: [id number] Acc #: [id number] NAME: JOHN DOMINGO : 1935 SEX: F STUDY DATE/TIME: 02/10/2017 22:44 UNIT: CED ROOM: 13483 STUDY DESCRIPTION: CR Chest Single View Portable Attending Physician: Herrera Cyr M.D. Ordering Physician: Reymundo Ziegler M.D. Primary Care Physician: Primary Care Physician No MEDICAL IMAGING REPORT This report is preliminary unless electronic signature is present EXAM Portable chest, 02/10 at 22:44 INDICATION Weakness and dizziness today. History of lung cancer. FINDINGS AP portable chest compared with 02/01/2017. There has been slight interval worsening in dense consolidation in the left mid to upper hemithorax with volume loss on the left side. Right lung is stable. Right side Port-A-Cath is present with the tip in the SVC. No pneumothorax. Postop changes in the right shoulder. IMPRESSION Progressive dense consolidation in the left hemithorax with volume loss. Right lung is stable. Dictated by... Sang Leal Jr., M.D. THIS IS AN ELECTRONICALLY VERIFIED REPORT Sang Leal Jr., M.D. at 02/11/2017 5:18 PM TIMMY/kita TD: 02/11/2017 09:50 JOB #: [id number] MEDICAL IMAGING REPORT Page 1 of 1 COPY
--- NOTE | ~2017-02-10 | DS ---
Unit #: [id number] #: [id number] Patient: JOHN DOMINGO [id number] [address] [place], [place] [address] [id number] I MR#: [id number] NAME: JOHN DOMINGO ROOM: 218 Age: 81 Sex: F Admission Date: 02/11/2017 : 1935 Discharge Date: 02/13/2017 Attending Physician: Robby Cyr M.D. Primary Care Physician: No Primary Care Physician DISCHARGE SUMMARY DISCHARGE DIAGNOSES 1. Weakness, multifactorial, resolved. 2. Anemia to some degree dilutional. Rule out GI source. 3. Recurrent mixed cell lung cancer. 4. Atrial fibrillation, cath negative, noncompliant with Coumadin. 5. Hypothyroidism. 6. Chronic obstructive pulmonary disease. DISCHARGE MEDICATIONS 1. Albuterol q.i.d. p.r.n. 2. Symbicort 2 puffs twice a day. 3. Xanax 0.25 mg q.i.d. p.r.n. 4. Humibid p.r.n. 5. She is on a variety of vitamins and she can continue those. 6. Oxycodone 10 mg q.i.d., p.r.n. pain. 7. Protonix 40 mg a day. 8. Synthroid 0.025 mg a day. FOLLOW UP [facility] for evaluation of anemia, Dr. Vasquez, Dr. Cyr and Dr. Miller in 1-2 weeks to re-discuss Coumadin, etc. DIET As tolerated. ACTIVITY No specific restrictions. DESCRIPTION OF HOSPITALIZATION The patient was admitted through the emergency room with weakness. It was very nonspecific. She was treated with IV fluids. There was a question of sepsis and she was placed on multiple antibiotics. My evaluation failed to reveal any definite pneumonia or sepsis, and vancomycin and tobramycin were stopped. A procalcitonin level was checked which was negative and ultimately all antibiotics were stopped. She did have a significant drop in her hemoglobin from 12.4 g to 9.4 g. Again, some of this may have been dilutional, but she mentioned some possible bright red blood per rectum and [facility] saw the patient in consultation. Repeat hemoglobin was 8.7 which they felt was stable and actually stated that she could go home with outpatient evaluation. Today, at discharge, she denies any further bleeding. She is anxious for discharge. She is eating well and able to performed activities of daily living. I have discussed with her and her family the need for medical compliance, but I am pessimistic that she will comply. Overall, she was discharged in improved condition. Unit #: [id number] #: [id number] Patient: JOHN DOMINGO Dictated by... Mane Jones/mallika TD: 02/13/2017 15:46 JOB #: [id number] CC: Olivia Justice Dr., Dr., Rd, Dr. DISCHARGE SUMMARY Page 1 of 1 X Anthony Stanley MD X DISCHARGE SUMMARY
--- NOTE | ~2017-02-10 | CR94 ---
[facility] A Service of [facility] RADIOLOGY TEXT RESULTS PATIENT: JOHN DOMINGO LOCATION: [facility] : 36 UNIT #: [id number] AGE: [address]: HERRERA CYR MD SEX: F ORDER DR: [id number] [facility] [address] [place], [place] [address] [id number] I MR#: [id number] Acc #: [id number] NAME: JOHN DOMINGO : 1935 SEX: F STUDY DATE/TIME: 02/11/2017 11:07 UNIT: [facility] ROOM: [facility] STUDY DESCRIPTION: CR Elbow Min 3 Views Rt Attending Physician: Herrera Cyr M.D. Ordering Physician: Anthony Stanley M.D. Primary Care Physician: No Primary Care Physician MEDICAL IMAGING REPORT This report is preliminary unless electronic signature is present EXAM Right elbow, 3 views, 02/11/2017, 1107 hours. CLINICAL HISTORY Patient fell today with pain and bruising at elbow. History of lung cancer. COMPARISON None FINDINGS AP, lateral, and oblique views demonstrate no definite joint effusion or fracture. There is apparent either skin fold or laceration posterior to the olecranon. The olecranon is intact. No foreign body seen. IMPRESSION 1. No joint effusion, fracture or foreign body. 2. There is lucency posterior to the olecranon which could represent open laceration or a skin fold. No foreign body. Dictated by... Eva Saenz M.D. THIS IS AN ELECTRONICALLY VERIFIED REPORT Eva Saenz M.D. at 02/12/2017 9:28 AM COLEEN/elizabeth TD: 02/11/2017 15:27 JOB #: [id number] MEDICAL IMAGING REPORT [facility] A Service [facility] RADIOLOGY TEXT RESULTS PATIENT: JOHN DOMINGO LOCATION: [facility] : 36 UNIT #: [id number] AGE: [address]: HERRERA CYR MD SEX: F ORDER DR: Page 1 of 1 COPY
[~2017-02-10 22:14] MED LIST changes: -PROTONIX PO
[2017-02-10 23:45] LABS: BASOPHIL# 0.1 X10e3 (0-0.3); BASOPHIL% 0.7 % (0-2.5); EOSINOPHIL# 0.1 X10e3 (0-0.7); EOSINOPHIL% 1.5 % (0.0-7.0); HEMOGLOBIN 12.4 gm/dL (12.0-16.0); LYMPHOCYTE# 1.1 X10e3 (1.0-3.5); LYMPHOCYTE% 13.2 % (17.0-45.0); MEAN CELL VOLUME 83.7 FL (83-96); MEAN CORPUSCULAR HEMOGLOBIN 26.7 PG (28-34); MEAN CORPUSCULAR HGB CONC 31.9 g/dL (30-36); MEAN PLATELET VOLUME 7.5 FL (6.5-11.5); MONOCYTE# 0.1 X10e3 (0-1.0); NEUTROPHIL# 6.8 X10e3 (1.5-7.1); NEUTROPHIL% 83.6 % (40-75); PLATELET COUNT 357 X10e3 (140-420); RED BLOOD COUNT 4.66 X10e (3.90-5.30); RED CELL DISTRIBUTION WIDTH 16.6 % (11.0-15.5); WHITE BLOOD COUNT 8.1 X10e3 (4.0-10.5)
[2017-02-10 23:46] LABS: DIFF IND NO
[2017-02-10 23:58] LABS: PROTHROMBIN TIME (PATIENT) 10.4 SECONDS (9.6-11.5)
[2017-02-11 00:07] LABS: ALBUMIN SERUM 3.5 g/dL (3.5-5.0); BILIRUBIN,TOTAL 0.9 mg/dL (0.2-2.0); BUN/CREATININE RATIO 21.53; CALCIUM SERUM 8.4 mg/dL (8.4-10.2); CREATININE SERUM 1.3 mg/dL (0.6-1.4); GLOM FILT RATE Estimated 38.7 mL/min (>60); MAGNESIUM 1.7 mg/dL (1.6-3.0); POTASSIUM 3.6 mmol/L (3.5-5.1); PROTEIN TOTAL SERUM 6.4 g/dL (6.0-8.3)
[2017-02-11 00:30] LABS: POC - CKMB 1.1 ng/mL (0.0-7.9); POC - TROPONIN <0.05 ng/mL (<=0.05)
[2017-02-11 07:44] LABS: PROTHROMBIN TIME (PATIENT) 10.7 SECONDS (9.6-11.5)
[2017-02-12 05:14] LABS: HEMATOCRIT 29.4 % (35.0-45.0); MEAN CELL VOLUME 83.9 FL (83-96); MEAN CORPUSCULAR HEMOGLOBIN 26.8 PG (28-34); MEAN PLATELET VOLUME 7.3 FL (6.5-11.5); RED BLOOD COUNT 3.5 X10e (3.90-5.30); RED CELL DISTRIBUTION WIDTH 16.5 % (11.0-15.5); WHITE BLOOD COUNT 9.3 X10e3 (4.0-10.5)
[2017-02-12 05:28] LABS: HEMOGLOBIN 9.4 gm/dL (12.0-16.0)
[2017-02-12 06:32] LABS: ALBUMIN SERUM 3.1 g/dL (3.5-5.0); BILIRUBIN,TOTAL 1.2 mg/dL (0.2-2.0); BUN/CREATININE RATIO 18.46; CREATININE SERUM 1.3 mg/dL (0.6-1.4); GLOM FILT RATE Estimated 38.7 mL/min (>60); PROTEIN TOTAL SERUM 5.5 g/dL (6.0-8.3)
[2017-02-12 15:07] LABS: HEMATOCRIT 26.4 % (35.0-45.0); HEMOGLOBIN 8.7 gm/dL (12.0-16.0)
[2017-02-13] MEDS ORDERED: PROTONIX PO (12:51)
== END 2017-02-13 14:16 | disposition home or self-care (01) | DRG 181 ==
LOC: CED 22:14 → CEDOF 02-11 01:30 → C2A 02-11 01:30 → CEDOF 02-11 01:32 → CED 02-11 01:32 → C2A 02-11 11:41
PROVIDERS: Emergency Medicine; Internal Medicine; Psychiatry & Neurology Behavioral Neurology & Neuropsychiatry
DX: C34.90 Malignant neoplasm of unspecified part of unspecified bronchus or lung (principal); K92.1 Melena; I95.9 Hypotension, unspecified; D64.89 Other specified anemias; I48.91 Unspecified atrial fibrillation; J44.9 Chronic obstructive pulmonary disease, unspecified; R11.2 Nausea with vomiting, unspecified; R53.1 Weakness; Z79.01 Long term (current) use of anticoagulants; Z91.14 Patient's other noncompliance with medication regimen; E03.9 Hypothyroidism, unspecified; E78.5 Hyperlipidemia, unspecified; Z87.891 Personal history of nicotine dependence; K63.5 Polyp of colon; Z90.5 Acquired absence of kidney
CPT/HCPCS: 36415; 71010; 73080; 80053; 82308; 82553; 83605; 83735; 84443; 84484; 85014; 85018; 85025; 85027; 85610; 87040; 87449; 93005; 94010; 94640; 94760; 96361; 96365; 96367; 96375; 99291; J2405; J2543; J2930; J3260; J3370